=== PATIENT | female | born 1985 | race African-American/Black ===

== ENCOUNTER 2016-07-28 01:26 | Emergency (ER) | payer OTHER ==
--- NOTE | ~2016-07-28 | CT4 ---
[facility] A Service of [facility] RADIOLOGY TEXT RESULTS PATIENT: TAISHA WOOD LOCATION: [facility] : [birth year] UNIT #: [id number] AGE: [address]: Tim Decker SEX: F ORDER DR: [id number] [place], [place] [address] [id number] MR#: [id number] Acc #: [id number] NAME: TAISHA WOOD : 1985 SEX: F STUDY DATE/TIME: 07/28/2016 3:04 UNIT: [facility] ROOM: STUDY DESCRIPTION: CT Abd and Pelv Wo Cont Attending Physician: Tim Decker Ordering Physician: Tmi Decker Primary Care Physician: Primary Care Physician No MEDICAL IMAGING REPORT This report is preliminary unless electronic signature is present EXAM CT abdomen and pelvis INDICATION Generalized abdominal pain for 2 weeks. Nausea and vomiting. TECHNIQUE CT abdomen and pelvis without contrast. Coronal and sagittal reconstructions were obtained. This CT exam was performed with one or more of the following radiation dose reduction techniques: automatic exposure control, adjustment of mA and/or kV according to patient size, and iterative reconstruction. COMPARISON CT abdomen and pelvis 06/28/2015. FINDINGS ABDOMEN: No urinary calculi. No hydronephrosis. Noncontrast evaluation of the remaining solid abdominal organs are within normal limits. Gallbladder is not distended. No bowel obstruction. Appendix is normal. PELVIS: No pelvic mass or free pelvic fluid. The uterus and ovaries are within normal limits. IMPRESSION 1. No acute findings in the abdomen or pelvis. 2. No urinary calculi. Normal appendix. Dictated by... Feliciano Shirley M.D. [facility] A Service of [facility] RADIOLOGY TEXT RESULTS PATIENT: TAISHA WOOD LOCATION: [facility] : 87 UNIT #: [id number] AGE: [address]: Tim Decker SEX: F ORDER DR: THIS IS AN ELECTRONICALLY VERIFIED REPORT Feliciano Shirley M.D. at 07/30/2016 12:22 AM Alanis TD: 07/28/2016 05:27 JOB #: [id number] MEDICAL IMAGING REPORT Page 1 of 1 COPY
[2016-07-28 03:09] LABS: URINE SOURCE CLEAN CATCH
[2016-07-28 03:15] LABS: URINE APPEARANCE CLEAR; URINE BILIRUBIN NEG (NEG); URINE BLOOD NEG (NEG); URINE COLOR YELLOW; URINE GLUCOSE NEG (NEG); URINE KETONE TRACE (NEG); URINE LEUKOCYTE ESTERASE TRACE (NEG); URINE NITRATE NEG (NEG); URINE PROTEIN NEG (NEG); URINE SPECIFIC GRAVITY 1.031 (1.003-1.035)
[2016-07-28 03:17] LABS: BASOPHIL% 0.3 % (0-2.5); DIFF IND NO; EOSINOPHIL# 0.1 X10e3 (0-0.7); EOSINOPHIL% 0.6 % (0.0-7.0); HEMATOCRIT 36.8 % (35.0-45.0); HEMOGLOBIN 12.3 gm/dL (12.0-16.0); LYMPHOCYTE# 2.4 X10e3 (1.0-3.5); LYMPHOCYTE% 28.3 % (17.0-45.0); MEAN CELL VOLUME 78.7 FL (83-96); MEAN CORPUSCULAR HEMOGLOBIN 26.2 PG (28-34); MEAN CORPUSCULAR HGB CONC 33.3 g/dL (30-36); MEAN PLATELET VOLUME 9.1 FL (6.5-11.5); MONOCYTE# 0.7 X10e3 (0-1.0); MONOCYTE% 8.2 % (3.0-12.0); NEUTROPHIL# 5.2 X10e3 (1.5-7.1); NEUTROPHIL% 62.6 % (40-75); PLATELET COUNT 232 X10e3 (140-420); RED BLOOD COUNT 4.67 X10e (3.90-5.30); RED CELL DISTRIBUTION WIDTH 17.4 % (11.0-15.5); WHITE BLOOD COUNT 8.3 X10e3 (4.0-10.5)
[2016-07-28 03:18] LABS: CULTURE INDICATED? YES; URBCS1 AUWI 0-2 /[HPF] (0-2); URINE BACTERIA AUWI 1+ (NEGATIVE); URINE SQUAMOUS EPITHELIAL CELL FEW /[HPF]
[2016-07-28 03:47] LABS: ALBUMIN SERUM 3.7 g/dL (3.5-5.0); ALKALINE PHOSPHATASE 33 U/L (32-92); ALT (SGPT) 23 U/L (10-40); AMYLASE 24 U/L (0-46); AST (SGOT) 24 U/L (10-42); BILIRUBIN,TOTAL 0.2 mg/dL (0.2-2.0); BLOOD UREA NITROGEN 13 mg/dL (9-23); CALCIUM SERUM 9.2 mg/dL (8.4-10.2); CARBON DIOXIDE 28 mmol/L (22-31); CHLORIDE 107 mmol/L (100-111); CREATININE SERUM 0.5 mg/dL (0.6-1.4); GLOM FILT RATE Estimated 151.6 mL/min (>60); GLUCOSE FASTING 86 mg/dL (70-110); LIPASE 29 U/L (22-51); POTASSIUM 3.9 mmol/L (3.5-5.1); PROTEIN TOTAL SERUM 7.4 g/dL (6.0-8.3); SODIUM 140 mmol/L (135-145)
[2016-07-28 03:48] LABS: BILIRUBIN, DIRECT <0.1 mg/dL (0.0-0.2); BILIRUBIN,INDIRECT 0.1 mg/dL (0.0-0.9)
== END 2016-07-28 04:17 | disposition home or self-care (01) ==
LOC: CED 01:26
PROVIDERS: Nurse Practitioner
DX: K59.00 Constipation, unspecified (principal); K64.4 Residual hemorrhoidal skin tags; R03.0 Elevated blood-pressure reading, without diagnosis of hypertension; K21.9 Gastro-esophageal reflux disease without esophagitis; F32.9 Major depressive disorder, single episode, unspecified; Z88.2 Allergy status to sulfonamides
CPT/HCPCS: 36415; 74176; 80048; 80076; 81003; 82150; 83690; 84703; 85025; 87086; 96374; 96375; 99284; J1885; J2765